=== PATIENT | male | born 1990 | race African-American/Black ===

== ENCOUNTER 2017-02-14 08:33 | Emergency (ER) | payer SELFPAY ==
--- NOTE | 2017-02-14 09:06 | ER Document Report ---
ED GI/ - General Chief Complaint: Abdominal Pain Stated Complaint: ABDOMINAL PAIN Time Seen by Provider: 02/14/17 09:06 Mode of Arrival: Ambulatory Information source: Patient Notes: 26-year-old unemployed male who lives with his father is complaining of vomiting since last evening. They ate at my time but nobody else in the house is sick. There is no abdominal pain or diarrhea. No fever. No travel outside the [place]. No history of Clostridium difficile. TRAVEL OUTSIDE OF THE [place] IN LAST 30 DAYS: No - Related Data Allergies/Adverse Reactions: No Known Allergies Allergy (Verified 02/14/17 08:36) Home Medications: Current Home Medications No Home Medications 02/14/17 [History] Past Medical History - General Information source: Patient - Social History Smoking Status: Current Every Day Smoker Drug Abuse: Marijuana Lives with: Family - dad Family History: None, Reviewed & Not Pertinent Renal/ Medical History: Denies: Hx Peritoneal Dialysis Skin Medical History: Reports Hx MRSA - Immunizations Hx Diphtheria, Pertussis, Tetanus Vaccination: Yes Review of Systems - Review of Systems Constitutional: No symptoms reported EENT: No symptoms reported Cardiovascular: No symptoms reported Respiratory: No symptoms reported Gastrointestinal: See HPI Genitourinary: No symptoms reported Male Genitourinary: No symptoms reported Musculoskeletal: No symptoms reported Skin: No symptoms reported Hematologic/Lymphatic: No symptoms reported Neurological/Psychological: No symptoms reported Physical Exam - Vital signs Vitals: Temp Pulse Resp BP Pulse Ox 98.9 F 57 L 18 153/94 H 97 02/14/17 08:36 02/14/17 08:36 02/14/17 08:36 02/14/17 08:36 02/14/17 08:36 Interpretation: Normal - General General appearance: Appears well, Alert In distress: None - HEENT Head: Normocephalic, Atraumatic Eyes: Normal Conjunctiva: Normal Pupils: PERRL Neck: Supple. No: Lymphadenopathy - Respiratory Respiratory status: No respiratory distress Chest status: Nontender Breath sounds: Normal Chest palpation: Normal - Cardiovascular Rhythm: Regular Heart sounds: Normal auscultation Murmur: No - Abdominal Inspection: Normal Distension: No distension Bowel sounds: Normal Tenderness: Nontender. No: Tender Organomegaly: No organomegaly. No: Hepatomegaly, Splenomegaly - Back Back: Normal, Nontender. No: CVA tenderness - Extremities General upper extremity: Normal inspection, Nontender, Normal color, Normal ROM , Normal temperature General lower extremity: Normal inspection, Nontender, Normal color, Normal ROM , Normal temperature, Normal weight bearing. No: Carley's sign - Neurological Neuro grossly intact: Yes Cognition: Normal Orientation: AAOx4 Goessel Coma Scale Eye Opening: Spontaneous Goessel Coma Scale Verbal: Oriented Goessel Coma Scale Motor: Obeys Commands Debby Coma Scale Total: 15 Speech: Normal Motor strength normal: LUE, RUE, LLE, RLE Sensory: Normal - Psychological Associated symptoms: Normal affect, Normal mood - Skin Skin Temperature: Warm Skin Moisture: Dry Skin Color: Normal Course - Re-evaluation Re-evalutation: 02/14/17 12:27 Patient drank some perico ana paula without vomiting he does feel better and I discussed with him the glucose reading of 158. He has no history of diabetes and I have added a hemoglobin A1c and I will him with the results this afternoon. I also advised him to follow-up with Dr. SALAZAR who his dad goes to has a family practice doctor 02/14/17 12:45 hbg AIC 6.4, which is slightly elevated which indicates pre-diabetes . 02/14/17 16:16 Call the patient back in his hemoglobin A1c was 6.4 which is category prediabetes I discussed with him weight loss limiting carbohydrates and he will follow-up with Dr. Salazar. - Vital Signs Vital signs: Temp Pulse Resp BP Pulse Ox 98.2 F 68 16 132/85 H 97 02/14/17 12:42 02/14/17 12:42 02/14/17 12:42 02/14/17 12:42 02/14/17 12:42 - Laboratory Result Diagrams: 02/14/17 10:15 02/14/17 11:40 Laboratory results interpreted by me: 02/14/17 02/14/17 02/14/17 10:15 10:15 11:10 WBC 12.2 H RDW 14.1 H Absolute Neutrophils 9.1 H Glucose Hemoglobin A1c % 6.4 H Urine Glucose (UA) 50 H Urine Blood SMALL H 02/14/17 11:40 WBC RDW Absolute Neutrophils Glucose 158 H Hemoglobin A1c % Urine Glucose (UA) Urine Blood Discharge - Discharge Clinical Impression: elevated glucose Vomiting Qualifiers: Vomiting type: unspecified Vomiting Intractability: non-intractable Nausea presence: with nausea Qualified Code(s): R11.2 - Nausea with vomiting, unspecified Condition: Good Disposition: HOME, SELF-CARE Instructions: Abdominal Pain ([facility]), Intravenous (IV) Fluids (OM), Vomiting ( OM) Additional Instructions: the hemoglobin A1c result is pending, I will call you with results Schedule appointment with Dr. Salazar next week for follow-up Copy of lab were given to you today advance diet as tolerated Please complete the patient satisfaction survey if you get one, and return it.. If you do not receive a survey, then you can go to the [facility] website, [email or web address] and place your comments about your very good care. Thank you very much. It was a pleasure being your medical provider today.
[2017-02-14] MEDS ORDERED: NORMAL SALINE 1000 ML 2,000 ML IV ONE (09:51)
[2017-02-14] MEDS ORDERED: ONDANSETRON 4 MG TAB.RAPDIS PO ONE (09:51)
[2017-02-14 10:50] LABS: ABSOLUTE BASOPHILS # (AUTO) 0.1 10^3/uL (0.0-0.2); ABSOLUTE EOSINOPHILS # (AUTO) 0.1 10^3/uL (0.0-0.6); ABSOLUTE LYMPHOCYTES (AUTO) 2.2 10^3/uL (0.5-4.7); ABSOLUTE MONOCYTES (AUTO) 0.8 10^3/uL (0.1-1.4); ABSOLUTE NEUT (AUTO) 9.1 10^3/uL (1.7-8.2); BASOPHILS % (AUTO) 0.7 % (0-2); EOSINOPHILS % (AUTO) 1.1 % (0-6); HEMOGLOBIN 16.9 g/dL (13.5-17.0); HGB HCT DIFFERENCE 2.7; LYMPHOCYTES % (AUTO) 17.6 % (13-45); MEAN CORPUSCULAR HEMOGLOBIN 32.2 pg (27.0-33.4); MEAN CORPUSCULAR HGB CONC 35.1 g/dL (32.0-36.0); MEAN CORPUSCULAR VOLUME 92 fl (80-97); MONOCYTES % (AUTO) 6.5 % (3-13); RED BLOOD COUNT 5.24 10^6/uL (4.35-5.55); RED CELL DISTRIBUTION WIDTH 14.1 % (11.5-14.0); SEGMENTED NEUTROPHILS % (AUTO) 74.1 % (42-78); WHITE BLOOD COUNT 12.2 10^3/uL (4.0-10.5)
[2017-02-14 11:27] LABS: APPEARANCE,URINE CLEAR; BILIRUBIN,URINE NEGATIVE (NEGATIVE); GLUCOSE, URINE 50 mg/dL (NEGATIVE); KETONES,URINE NEGATIVE (NEGATIVE); LEUKOCYTE ESTERASE,URINE NEGATIVE (NEGATIVE); NITRITE,URINE NEGATIVE (NEGATIVE); PROTEIN,URINE NEGATIVE (NEGATIVE); URINE SPECIFIC GRAVITY 1.021; UROBILINOGEN,URINE NEGATIVE mg/dL (<2.0)
[2017-02-14 12:08] LABS: ALANINE AMINOTRANSFERASE 25 U/L (21-72); ALBUMIN 3.7 g/dL (3.5-5.0); ALKALINE PHOSPHATASE 94 U/L (38-126); ANION GAP 12 (5-19); ASPARTATE AMINO TRANSFERASE 17 U/L (17-59); BILIRUBIN,DIRECT 0.3 mg/dL (0.0-0.4); BILIRUBIN,TOTAL 0.5 mg/dL (0.2-1.3); BLOOD UREA NITROGEN 7 mg/dL (7-20); CALCIUM 8.9 mg/dL (8.4-10.2); CARBON DIOXIDE 23 mmol/L (22-30); CHLORIDE 105 mmol/L (98-107); GLUCOSE 158 mg/dL (75-110); LIPASE 90.6 U/L (23-300); POTASSIUM 4.3 mmol/L (3.6-5.0); TOTAL PROTEIN 7.2 g/dL (6.3-8.2)
[2017-02-14 12:44] VITALS: BP 132/85
== END 2017-02-14 12:43 | disposition home or self-care (01) ==
LOC: ER 08:33
DX: R73.09 Other abnormal glucose (principal); R11.2 Nausea with vomiting, unspecified; R10.9 Unspecified abdominal pain; F17.200 Nicotine dependence, unspecified, uncomplicated; Z86.14 Personal history of Methicillin resistant Staphylococcus aureus infection
CPT/HCPCS: 99284; 96360; 36415; 83690; 85025; 80053; 81001; 83036; S0119; J7030

== ENCOUNTER 2017-02-18 09:09 | Observation (INO) | payer SELFPAY ==
[2017-02-18] MEDS ORDERED: LIDOCAINE 2% INJ-PF (20 MG/ML) 10 ML AMPUL ONE (09:44)
[2017-02-18] MEDS ORDERED: NEOSTIGMINE METHYLSULFATE 10 MG/10 ML VIAL ONE (09:44)
[2017-02-18] MEDS ORDERED: DEXAMETHASONE SOD PHOSPHATE INJ 4 MG/1 ML VIAL ONE (09:44)
[2017-02-18] MEDS ORDERED: GLYCOPYRROLATE INJ 0.4 MG/2 ML VIAL ONE (09:44)
[2017-02-18] MEDS ORDERED: ONDANSETRON HCL INJ/PF 4 MG/2 ML SDV ONE (09:44)
[2017-02-18] MEDS ORDERED: SUCCINYLCHOLINE CHLORIDE INJ 200 MG/10 ML VIAL ONE (09:44)
[2017-02-18] MEDS ORDERED: ROCURONIUM BROMIDE INJ 50 MG/5 ML VIAL IV ONE (09:44)
[2017-02-18] MEDS ORDERED: METOCLOPRAMIDE HCL INJ/PF 10 MG/2 ML SDV ONE (09:44)
--- NOTE | 2017-02-18 09:54 | ER Document Report ---
ED Medical Screen (RME) - General Chief Complaint: Abdominal Pain Stated Complaint: ABDOMINAL PAIN, NAUSEA,VOMITING Time Seen by Provider: 02/18/17 09:52 Notes: . He states he felt good Wednesday and Wednesday but then he woke up at 3: 00 this morning with pain again. He states last night he ate pasta salad and ice cream. Patient denies any chronic medical conditions her past surgeries. He states he has been vomiting he states the pain is in the right upper quadrant and epigastric area. TRAVEL OUTSIDE OF THE [place] IN LAST 30 DAYS: No - Related Data Allergies/Adverse Reactions: No Known Allergies Allergy (Verified 02/18/17 09:17) Past Medical History - Social History Frequency of alcohol use: Occasional Drug Abuse: None Renal/ Medical History: Denies: Hx Peritoneal Dialysis Skin Medical History: Reports Hx MRSA Surgical Hx: Negative - Immunizations Hx Diphtheria, Pertussis, Tetanus Vaccination: Yes Physical Exam - Vital signs Vitals: Temp Pulse Resp BP Pulse Ox 98.0 F 58 L 16 147/102 H 98 02/18/17 09:17 02/18/17 09:17 02/18/17 09:17 02/18/17 09:17 02/18/17 09:17 Course - Vital Signs Vital signs: Temp Pulse Resp BP Pulse Ox 98.0 F 58 L 16 147/102 H 98 02/18/17 09:17 02/18/17 09:17 02/18/17 09:17 02/18/17 09:17 02/18/17 09:17
--- NOTE | 2017-02-18 10:16 | ER Document Report ---
ED GI/ - General Chief Complaint: Abdominal Pain Stated Complaint: ABDOMINAL PAIN, NAUSEA,VOMITING Time Seen by Provider: 02/18/17 09:52 Mode of Arrival: Ambulatory Information source: Patient Notes: 26-year-old normally healthy male woke up at 2:00 this morning with epigastric and right upper quadrant pain that radiated around to his back causing him to vomit. No diarrhea. He had vomiting and upper abdominal pain on Wednesday and was seen in the emergency department. He had no symptoms Wednesday and Wednesday. He drinks alcohol on Wednesday. Just arrived back from [facility]. Last food. TRAVEL OUTSIDE OF THE [place] IN LAST 30 DAYS: No - Related Data Allergies/Adverse Reactions: No Known Allergies Allergy (Verified 02/18/17 09:17) Past Medical History - General Information source: Patient - Social History Smoking Status: Current Every Day Smoker Frequency of alcohol use: Occasional Drug Abuse: None Lives with: Family Family History: Reviewed & Not Pertinent Renal/ Medical History: Denies: Hx Peritoneal Dialysis Skin Medical History: Reports Hx MRSA Surgical Hx: Negative - Immunizations Hx Diphtheria, Pertussis, Tetanus Vaccination: Yes Review of Systems - Review of Systems Constitutional: No symptoms reported EENT: No symptoms reported Cardiovascular: No symptoms reported Respiratory: No symptoms reported Gastrointestinal: See HPI Genitourinary: No symptoms reported Male Genitourinary: No symptoms reported Musculoskeletal: No symptoms reported Skin: No symptoms reported Hematologic/Lymphatic: No symptoms reported Neurological/Psychological: No symptoms reported Physical Exam - Vital signs Vitals: Temp Pulse Resp BP Pulse Ox 98.0 F 58 L 16 147/102 H 98 02/18/17 09:17 02/18/17 09:17 02/18/17 09:17 02/18/17 09:17 02/18/17 09:17 Interpretation: Normal - General General appearance: Appears well, Alert In distress: None - HEENT Head: Normocephalic, Atraumatic Eyes: Normal Pupils: PERRL - Respiratory Respiratory status: No respiratory distress Chest status: Nontender Breath sounds: Normal Chest palpation: Normal - Cardiovascular Rhythm: Regular Heart sounds: Normal auscultation Murmur: No - Abdominal Inspection: Normal Distension: No distension Bowel sounds: Normal Tenderness: Tender - epigatric RUQ Organomegaly: No organomegaly - Back Back: Normal, Nontender. No: CVA tenderness - Extremities General upper extremity: Normal inspection, Nontender, Normal color, Normal ROM , Normal temperature General lower extremity: Normal inspection, Nontender, Normal color, Normal ROM , Normal temperature, Normal weight bearing. No: Carley's sign - Neurological Neuro grossly intact: Yes Cognition: Normal Orientation: AAOx4 Debby Coma Scale Eye Opening: Spontaneous Debby Coma Scale Verbal: Oriented Debby Coma Scale Motor: Obeys Commands [place] Coma Scale Total: 15 Speech: Normal Motor strength normal: LUE, RUE, LLE, RLE Sensory: Normal - Psychological Associated symptoms: Normal affect, Normal mood - Skin Skin Temperature: Warm Skin Moisture: Dry Skin Color: Normal Skin irregularity: negative: Rash Course - Re-evaluation Re-evalutation: 02/18/17 11:29 Ultrasound shows acute cholecystitis with gallbladder wall thickening, gallstones, pericholecystic fluid and a white count of 12,000. I called Dr. oreilly surgical evaluation. I will keep the patient n.p.o. 02/18/17 12:09 Dr. Delaney saw the patient and will be doing surgery today. 02/18/17 12:24 - Vital Signs Vital signs: Temp Pulse Resp BP Pulse Ox 98.0 F 58 L 16 147/102 H 98 02/18/17 09:17 02/18/17 09:17 02/18/17 09:17 02/18/17 09:17 02/18/17 09:17 - Laboratory Result Diagrams: 02/18/17 10:07 02/18/17 10:07 Laboratory results interpreted by me: 02/18/17 02/18/17 10:07 10:07 WBC 12.1 H Seg Neutrophils % 79.0 H Absolute Neutrophils 9.5 H Glucose 171 H Discharge - Discharge Clinical Impression: Acute cholecystitis Condition: Good Disposition: ADMITTED INPATIENT Admitting Provider: Surgicalist Unit Admitted: Surgical Floor
[2017-02-18 10:21] LABS: ABSOLUTE BASOPHILS # (AUTO) 0.1 10^3/uL (0.0-0.2); ABSOLUTE EOSINOPHILS # (AUTO) 0.1 10^3/uL (0.0-0.6); ABSOLUTE LYMPHOCYTES (AUTO) 1.9 10^3/uL (0.5-4.7); ABSOLUTE MONOCYTES (AUTO) 0.5 10^3/uL (0.1-1.4); ABSOLUTE NEUT (AUTO) 9.5 10^3/uL (1.7-8.2); BASOPHILS % (AUTO) 0.6 % (0-2); EOSINOPHILS % (AUTO) 0.6 % (0-6); HEMATOCRIT 48.4 % (37.9-51.0); HEMOGLOBIN 16.5 g/dL (13.5-17.0); HGB HCT DIFFERENCE 1.1; LYMPHOCYTES % (AUTO) 15.3 % (13-45); MEAN CORPUSCULAR HEMOGLOBIN 31.6 pg (27.0-33.4); MEAN CORPUSCULAR HGB CONC 34.1 g/dL (32.0-36.0); MEAN CORPUSCULAR VOLUME 93 fl (80-97); MONOCYTES % (AUTO) 4.5 % (3-13); RED BLOOD COUNT 5.22 10^6/uL (4.35-5.55); RED CELL DISTRIBUTION WIDTH 12.9 % (11.5-14.0); WHITE BLOOD COUNT 12.1 10^3/uL (4.0-10.5)
[2017-02-18 10:40] LABS: ALANINE AMINOTRANSFERASE 32 U/L (21-72); ALBUMIN 4.6 g/dL (3.5-5.0); ALKALINE PHOSPHATASE 104 U/L (38-126); ANION GAP 14 (5-19); ASPARTATE AMINO TRANSFERASE 20 U/L (17-59); BILIRUBIN,DIRECT 0.3 mg/dL (0.0-0.4); BILIRUBIN,TOTAL 0.6 mg/dL (0.2-1.3); BLOOD UREA NITROGEN 9 mg/dL (7-20); CARBON DIOXIDE 22 mmol/L (22-30); CHLORIDE 105 mmol/L (98-107); CREATININE RESULT 0.68 mg/dL (0.52-1.25); GLUCOSE 171 mg/dL (75-110); LIPASE 51.4 U/L (23-300); POTASSIUM 4.2 mmol/L (3.6-5.0); SODIUM 140.9 mmol/L (137-145); TOTAL PROTEIN 8.2 g/dL (6.3-8.2)
--- NOTE | 2017-02-18 10:56 | RADIOLOGY REPORT (SQ) ---
EXAM DESCRIPTION: U/S ABDOMEN LIMITED W/O DOP COMPLETED DATE/TIME: 02/18/2017 10:47 am REASON FOR STUDY: ruq pain COMPARISON: None. TECHNIQUE: Dynamic and static grayscale images acquired of the abdomen and recorded on PACS. Additio nal selected color Doppler and spectral images recorded. LIMITATIONS: None. FINDINGS: PANCREAS: No masses. Visualized pancreatic duct normal caliber. LIVER: No masses. Echotexture normal. LIVER VASCULATURE: Normal directional flow of the main portal vein and hepatic veins. GALLBLADDER: Gallstones. Gallbladder wall thickening and trace pericholecystic fluid. ULTRASOUND-DETECTED OCHOA'S SIGN: Negative. INTRAHEPATIC DUCTS AND COMMON DUCT: CBD and intrahepatic ducts normal caliber. No filling defects. INFERIOR VENA CAVA: Normal flow. AORTA: No aneurysm. RIGHT KIDNEY: Normal size. Normal echogenicity. No solid or suspicious masses. No hydronephrosis. No calcifications. PERITONEAL AND RIGHT PLEURAL SPACE: No ascites or effusions. OTHER: No other significant findings. IMPRESSION: GALLSTONES. GALLBLADDER WALL THICKENING AND TRACE PERICHOLECYSTIC FLUID COULD INDICATE CHOLECYSTITIS, ALTHOUGH SONOGRAPHIC OCHOA SIGN IS REPORTEDLY NEGATIVE. NO BILIARY DILATION. TECHNICAL DOCUMENTATION: JOB ID: [id number] [email or web address]- All Rights Reserved
[2017-02-18] MEDS ORDERED: MORPHINE SULFATE 10 MG/ML INJ IV ONE (11:28)
[2017-02-18] MEDS ORDERED: ONDANSETRON HCL INJ/PF 4 MG/2 ML SDV IV ONE (11:28)
[2017-02-18] MEDS ORDERED: NORMAL SALINE 1000 ML 1,000 ML IV ONE (11:28)
--- NOTE | 2017-02-18 12:00 | PDOC H&P ---
History of Present Illness Admission Date/PCP: 02/18/17 11:53 Patient complains of: Abdominal pain History of Present Illness: SARBJIT HERNANDES is a 26 year old male in usual state of excellent health up until several days ago when he developed sudden onset of epigastric abdominal pain that persisted for about a day and then completely resolved. The pain returned yesterday and has persisted. Patient thinks that he has had some fever. No diarrhea. No jaundice. He did have nausea and vomiting. He denies any prior history of this sort of abdominal pain. He has been feeling well otherwise until this recent abdominal pain. Past Medical History Cardiac Medical History: Reports: None Pulmonary Medical History: Reports: None Past Surgical History Past Surgical History: Reports: None Social History Smoking Status: Current Every Day Smoker Frequency of Alcohol Use: Social Family History Family History: None, Reviewed & Not Pertinent Parental Family History Reviewed: No - Patient was adopted Children Family History Reviewed: Unknown - Patient was adopted Sibling(s) Family History Reviewed.: Unknown Medication/Allergy Home Medications: No Home Medications 02/14/17 Allergies/Adverse Reactions: No Known Allergies Allergy (Verified 02/18/17 09:17) Physical Exam Vital Signs: Temp Pulse Resp BP Pulse Ox 98.0 F 58 L 16 147/102 H 98 02/18/17 09:17 02/18/17 09:17 02/18/17 09:17 02/18/17 09:17 02/18/17 09:17 General appearance: PRESENT: no acute distress, cooperative Eye exam: PRESENT: conjunctiva pink Neck exam: PRESENT: other - Supple with no tenderness and no masses Respiratory exam: PRESENT: clear to auscultation arias Cardiovascular exam: PRESENT: RRR GI/Abdominal exam: PRESENT: other - Soft, nondistended, right upper quadrant abdominal tenderness without peritoneal signs. Extremities exam: PRESENT: other - No swelling. Neurological exam: PRESENT: alert, awake Psychiatric exam: PRESENT: appropriate affect Skin exam: PRESENT: warm Results Impressions: Abdomen Ultrasound 02/18/17 09:52 IMPRESSION: GALLSTONES. GALLBLADDER WALL THICKENING AND TRACE PERICHOLECYSTIC FLUID COULD INDICATE CHOLECYSTITIS, ALTHOUGH SONOGRAPHIC OCHOA SIGN IS REPORTEDLY NEGATIVE. NO BILIARY DILATION. Assessment & Plan - Diagnosis (1) Cholecystitis with cholelithiasis Qualifiers: Cholecystitis acuity: acute Biliary obstruction: without biliary obstruction Is this a current diagnosis for this admission?: Yes Plan: We will plan laparoscopic cholecystectomy possible open cholecystectomy. I have discussed with the patient the risk and benefits of the procedure including risk of bile duct injury, intestinal injury, bleeding, infection, postcholecystectomy diarrhea, possible large incision. Patient understands and agrees to proceed.
[2017-02-18] MEDS ORDERED: ONDANSETRON HCL INJ/PF 4 MG/2 ML SDV IV PRN ×2 (12:01→13:31)
[2017-02-18] MEDS ORDERED: DEXTROSE 50%-WATER 25 GM/50 ML DISP.SYRIN IV PRN ×2 (12:01)
[2017-02-18] MEDS ORDERED: DEXTROSE 40% GEL 15 GM TUBE PO PRN ×2 (12:01)
[2017-02-18] MEDS ORDERED: GLUCAGON,HUMAN RECOMB 1 MG INJ SUBCUT PRN (12:01)
[2017-02-18] MEDS ORDERED: AMPICILLIN SOD/SULBACTAM 3 GM VIAL IV ONE (12:01)
[2017-02-18] MEDS: NORMAL SALINE 1000 ML 1,000 ML IV PRN ×2 (12:39→18:15)
[2017-02-18] MEDS ORDERED: ACETAMINOPHEN 100 ML IV ONE (12:45)
[2017-02-18] MEDS ORDERED: MIDAZOLAM 2 MG/2 ML INJ ONE (12:46)
[2017-02-18] MEDS ORDERED: EPHEDRINE SULFATE INJ 50 MG/1 ML AMPULE ONE (12:46)
[2017-02-18] MEDS ORDERED: FENTANYL CITRATE INJ/PF 100 MCG/2 ML AMPUL ONE (12:46)
[2017-02-18] MEDS ORDERED: PROPOFOL INJ 200 MG/20 ML VIAL IV ONE (12:47)
[2017-02-18] MEDS ORDERED: HYDROMORPHONE HCL INJ/PF 2 MG/ML AMPULE ONE (12:47)
[2017-02-18] MEDS ORDERED: BUPIVACAINE HCL 0.25 % INJ/PF (2.5 MG/1 ML) 30 ML VIAL ONE (13:05)
[2017-02-18] MEDS ORDERED: MORPHINE SULFATE 10 MG/ML INJ IV PRN ×2 (13:31→14:25)
[2017-02-18] MEDS ORDERED: MEPERIDINE HCL/PF INJ 25 MG/1 ML DISP.SYRIN IV PRN (13:31)
[2017-02-18] MEDS ORDERED: FENTANYL CITRATE INJ/PF 100 MCG/2 ML AMPUL IV PRN ×3 (13:31)
[2017-02-18] MEDS ORDERED: PROMETHAZINE HCL INJ 25 MG/1 ML VIAL IV PRN ×2 (13:31)
[2017-02-18] MEDS ORDERED: DIPHENHYDRAMINE HCL 50 MG/ML VIAL IV PRN (13:31)
[2017-02-18] MEDS ORDERED: OXYCODONE-ACETAMINOPHEN 5-325 MG TABLET PO PRN ×2 (13:31)
--- NOTE | 2017-02-18 14:24 | Operative Report ---
Operative Report DATE OF SURGERY: 02/18/17 PREOPERATIVE DIAGNOSIS: Acute cholecystitis POSTOPERATIVE DIAGNOSIS: Acute cholecystitis OPERATION: Laparoscopic cholecystectomy SURGEON: GINGER SZYMANSKI ANESTHESIA: GA TISSUE REMOVED OR ALTERED: Gallbladder COMPLICATIONS: None ESTIMATED BLOOD LOSS: 30 cc INTRAOPERATIVE FINDINGS: Markedly thickened wall distended gallbladder PROCEDURE: Informed consent was obtained. Patient was brought to the operating room placed operating table in supine position. After satisfactory induction of general anesthesia, patient's abdomen was prepped and draped in usual sterile fashion. A supraumbilical midline incision was made and dissection carried down to the fascia the peritoneal cavity entered without difficulty. Carreno trocar was inserted. Pneumoperitoneum produced good patient toleration. 5 mm trocar was placed in the subxiphoid location.Two 5 mm trochars were placed in the right subcostal location. The gallbladder was grasped and retracted cephalad over the dome of the liver. The infundibulum of the gallbladder was grasped retracted laterally and inferiorly thus exposing calot's triangle. The gallbladder appear markedly distended and its wall markedly thickened. It had to be decompressed with a decompression needle yielding cloudy fluid. Inflammation and edema at the close triangle made the dissection difficult. The cystic duct gallbladder junction was clearly identified and the cystic duct was clipped and divided. Cystic artery was likewise taken. There was a small vessel going into the gallbladder posteriorly that was also clipped and divided. The gallbladder was taken off the gallbladder bed using the hook electrocautery technique. The gallbladder was removed with an Endobag through the Carreno trocar site fascial defect. Operative field was irrigated and irrigant aspirated out. Irrigation fluid was perfectly clear at the end of the case. Hemostasis appeared excellent. All trochars were removed under the direct vision a laparoscope to ensure hemostasis. The Carreno trocar site fascial defect was closed with interrupted Vicryl sutures. All skin incisions were closed with subcuticular interrupted Monocryl sutures. Marcaine was injected at the port sites. Patient tolerated procedure well no apparent complications and was taken to the recovery area in stable condition.
--- NOTE | 2017-02-18 22:24 | PDOC PROGRESS REPORT ---
Subjective Progress Note for:: 02/18/17 Subjective:: Feels well. Preoperative pain has resolved. Physical Exam Vital Signs: Temp Pulse Resp BP Pulse Ox 98.3 F 69 16 135/79 H 95 02/18/17 20:54 02/18/17 20:54 02/18/17 20:54 02/18/17 20:54 02/18/17 20:30 Intake & Output 02/17/17 02/18/17 02/19/17 06:59 06:59 06:59 Intake Total 2790 Output Total 1070 Balance 1720 General appearance: PRESENT: no acute distress, cooperative Respiratory exam: PRESENT: clear to auscultation arias Cardiovascular exam: PRESENT: RRR GI/Abdominal exam: PRESENT: other - Soft, nondistended, minimal abdominal tenderness. Results Impressions: Abdomen Ultrasound 02/18/17 09:52 IMPRESSION: GALLSTONES. GALLBLADDER WALL THICKENING AND TRACE PERICHOLECYSTIC FLUID COULD INDICATE CHOLECYSTITIS, ALTHOUGH SONOGRAPHIC OCHOA SIGN IS REPORTEDLY NEGATIVE. NO BILIARY DILATION. Assessment & Plan - Diagnosis (1) Cholecystitis with cholelithiasis Qualifiers: Cholecystitis acuity: acute Biliary obstruction: without biliary obstruction Is this a current diagnosis for this admission?: Yes Plan: Status post laparoscopic cholecystectomy. Patient looks good. Will discharge patient home in the morning.
[2017-02-19 08:10] VITALS: BP 130/73
--- NOTE | 2017-02-19 10:42 | DISCHARGE SUMMARY E ---
Discharge Summary NAME: SARBJIT HERNANDES : 1990 AGE: 26Y ADMITTED: 02/18/2017 DISCHARGED: 02/19/2017 FINAL DIAGNOSIS: Acute cholecystitis. PROCEDURE DONE: Laparoscopic cholecystectomy 02/18/[address] Abdalla. HOSPITAL COURSE: Patient noted to have acute cholecystitis on ultrasound. Patient had gallstones. Patient then taken to the OR on day of admission and laparoscopic cholecystectomy was done Dr. Abdalla. This morning, patient is alert, awake, and oriented. All the dressings are dry. He is afebrile. He is tolerating his diet well. He was then discharged on 02/19/2017 with above final diagnosis. Patient advised not to do any heavy lifting more than 15 pounds for the next 2 weeks and prescription for Percocet was given to take 1 every 6 hours p.r.n. for pain for the next 3 days. Patient was then discharged improved on 02/19/2017. DICTATING PHYSICIAN: LYNDON YO M.D. [id number] PHY#: [id number] ID: [id number] JOB#: [id number] ACCT: [id number] cc:Renata SOTELO MD, M.D. Nara RASCONNFroylan >
== END 2017-02-19 13:10 | disposition home or self-care (01) ==
LOC: ER 09:09 → EH 11:53 → UNDOADMIN 11:53 → EH 12:01 → INTOOBSV 12:01 → 4N 15:22
PROVIDERS: ATTEND Surgery
PROC: 0FT44ZZ Resection of Gallbladder, Percutaneous Endoscopic Approach (ICD-10-PCS; principal; 2017-02-18 13:00)
DX: K80.10 Calculus of gallbladder with chronic cholecystitis without obstruction (principal); F17.210 Nicotine dependence, cigarettes, uncomplicated; Z86.14 Personal history of Methicillin resistant Staphylococcus aureus infection
CPT/HCPCS: 99284; 36415; 87040; 87205; 87070; 83690; 85025; 87075; 80053; 88342 ×2; 88304 ×2; 76705; 47562; G0378 ×3; J2250; J3490 ×3; J1100; J2765; J2270; J1170; J0330; J2405; J7030; J2704; J0131; 790; J3010